=== PATIENT | female | born 1985 | race Two or more races ===

== ENCOUNTER 2016-09-17 12:06 | Emergency (ER) | payer MEDICAID ==
[~2016-09-17] VITALS: Ht 165.1 cm; Wt 80.0 kg
[2016-09-17 12:08] VITALS: BP 135/71
[2016-09-17] MEDS ORDERED: ACETAMINOPHEN 500MG TABLET PO ONE (13:15)
== END 2016-09-17 13:25 | disposition left against medical advice (07) ==
LOC: ER 12:21
DX: R10.30 Lower abdominal pain, unspecified (principal); M32.9 Systemic lupus erythematosus, unspecified
CPT/HCPCS: 99283